=== PATIENT | male | born 1985 | race American Indian/Alaskan Native ===

== ENCOUNTER 2019-08-19 08:21 | Emergency (ER) | payer SELFPAY ==
[2019-08-19 09:19] LABS: Bilirubin,Urine NEG (Negative); Blood,Urine NEG (Negative); Color,Urine Straw (Yellow); Protein,Urine <15 mg/dL mg/dL (Negative); Urobilinogen,Urine < 2.0 mg/dL (<2.0); WBC,Urine < 1.0 /HPF (0.0-6.0)
[2019-08-19 12:49] VITALS: BP 113/77
--- NOTE | 2019-08-19 13:14 | Emergency Department Report ---
ED Back Pain/Injury HPI - General Chief Complaint: Abdominal Pain Stated Complaint: LEFT SIDE PAIN Time Seen by Provider: 08/19/19 12:06 Source: patient Limitations: No Limitations - History of Present Illness Initial Comments: This is a 34-year-old male nontoxic, well nourished in appearance, no acute signs of distress presents to the ED with c/o of acute on chronic left lower back pain. Patient stated that the past 2 days he was moving and developed this pain. Patient denies any radiation of pain. Patient denies any trauma. Denies any bladder or bowel instability. Patient denies any urinary symptoms. Denies any fever, chills, nausea, vomiting, headache, stiff neck, chest pain or shortness of breath. Patient denies any numbness or tingling. Denies any allergies. MD Complaint: back pain -: days(s) (2) Similar Symptoms Previously: Yes Radiation: none Severity: mild Severity scale (0 -10): 3 Quality: aching Consistency: intermittent Improves With: immobilization, sitting upright Worsens With: movement, walking Context: while lifting, turning/twisting Associated Symptoms: denies other symptoms. denies: confusion, weakness, chest pain, numbness, difficulty walking, cough, difficulty urinating, diaphoresis, incontinence, fever/chills, constipation, headaches, abdominal pain, loss of appetite, malaise, nausea/vomiting, rash, seizure, shortness of breath, syncope - Related Data Previous Rx's Medication Instructions Recorded Last Taken Type Ciprofloxacin HCl [Cipro] 500 mg PO BID #20 tablet 04/13/13 Unknown Rx DOXYCYCLINE Hyclate [Vibramycin 100 mg PO BID 10 Days capsule 04/13/13 Unknown Rx CAP] Allergies Allergy/AdvReac Type Severity Reaction Status Date / Time No Known Allergies Allergy Unverified 04/06/13 13:40 ED Review of Systems ROS: Stated complaint: LEFT SIDE PAIN Other details as noted in HPI Constitutional: denies: chills, fever Eyes: denies: eye pain, eye discharge, vision change ENT: denies: ear pain, throat pain Respiratory: denies: cough, shortness of breath, wheezing Cardiovascular: denies: chest pain, palpitations Endocrine: no symptoms reported Gastrointestinal: denies: abdominal pain, nausea, diarrhea Genitourinary: denies: urgency, dysuria Musculoskeletal: back pain. denies: joint swelling, arthralgia Skin: denies: rash, lesions Neurological: denies: headache, weakness, paresthesias Psychiatric: denies: anxiety, depression Hematological/Lymphatic: denies: easy bleeding, easy bruising ED Past Medical Hx - Past Medical History Previous Medical History?: Yes Hx Asthma: Yes (as a child) - Surgical History Past Surgical History?: Yes Additional Surgical History: umbilical hernia repair age 7 years - Social History Smoking Status: Current Every Day Smoker Substance Use Type: Marijuana - Medications Home Medications: Home Medications Medication Instructions Recorded Confirmed Last Taken Type Ciprofloxacin HCl [Cipro] 500 mg PO BID #20 tablet 04/13/13 Unknown Rx DOXYCYCLINE Hyclate [Vibramycin 100 mg PO BID 10 Days capsule 04/13/13 Unknown Rx CAP] ED Physical Exam - General Limitations: No Limitations General appearance: alert, in no apparent distress - Head Head exam: Present: atraumatic, normocephalic - Neck Neck exam: Present: normal inspection, full ROM. Absent: tenderness, meningismus, lymphadenopathy - Extremities Exam Extremities exam: Present: normal inspection, full ROM - Back Exam Back exam: Present: normal inspection, full ROM, paraspinal tenderness (left lumbar paraspinal). Absent: tenderness, CVA tenderness (R), CVA tenderness (L), muscle spasm, vertebral tenderness, rash noted - Expanded Back Exam Expanded Back exam: Absent: saddle anesthesia Back exam: Negative Straight Leg Raising: Left, Right - Neurological Exam Neurological exam: Present: alert, oriented X3, normal gait - Psychiatric Psychiatric exam: Present: normal affect, normal mood - Skin Skin exam: Present: warm, dry, intact, normal color. Absent: rash ED Course Vital Signs 08/19/19 08/19/19 08:25 12:48 Temperature 97.9 F 98.1 F Pulse Rate 81 70 Respiratory 20 16 Rate Blood Pressure 123/67 Blood Pressure 113/77 [Right] O2 Sat by Pulse 98 100 Oximetry - Reevaluation(s) Reevaluation #1: 08/19/19 13:13 Patient is speaking in full sentences with no signs of distress noted. ED Medical Decision Making - Medical Decision Making This is a 34-year-old male that presents with low back strain. Patient is stable was examined by me. There is no spinal tenderness. There is no cauda equina syndrome during examination. No bladder or bowel instability. UA is unremarkable. Patient was referred to Follow-up with a primary care doctor in 3-5 days or if symptoms worsen and continue return to emergency room as soon as possible. At time of discharge, the patient does not seem toxic or ill in appearance. No acute signs of distress noted. Patient agrees to discharge treatment plan of care. No further questions noted by the patient. This chart is dictated with using [employer] Critical care attestation.: If time is entered above; I have spent that time in minutes in the direct care of this critically ill patient, excluding procedure time. ED Disposition Clinical Impression: Low back strain Qualifiers: Encounter type: initial encounter Qualified Code(s): S39.012A - Strain of muscle, fascia and tendon of lower back, initial encounter Disposition: [facility] SCREENING EXAM-LEFT Is pt being admited?: No Does the pt Need Aspirin: No Condition: Stable Instructions: Low Back Strain (ED) Additional Instructions: Follow-up with your primary care doctor in 3-5 days or if symptoms worsen such as bladder or bowel stability, chest pain, short of breath, numbness or tingling sensation in extremities, headache, dizziness, visual changes, nausea vomiting, or abdominal pain, return back to emergency room as was possible. Referrals: PRIMARY CAREMD [Primary Care Provider] - 3-5 Days CHEN TREJO MD [Staff Physician] - 3-5 Days [facility] [Outside] - 3-5 Days
== END 2019-08-19 13:23 | disposition left against medical advice (07) ==
LOC: ED 08:21
DX: S39.012A Strain of muscle, fascia and tendon of lower back, initial encounter (principal); J45.909 Unspecified asthma, uncomplicated; F17.200 Nicotine dependence, unspecified, uncomplicated; F12.10 Cannabis abuse, uncomplicated; Z79.899 Other long term (current) drug therapy; X58.XXXA Exposure to other specified factors, initial encounter; Y93.89 Activity, other specified; Y92.89 Other specified places as the place of occurrence of the external cause; Y99.8 Other external cause status
CPT/HCPCS: 81001